=== PATIENT | male | born 1980 | race Two or more races ===

== ENCOUNTER 2017-10-29 12:23 | Emergency (ER) | payer SELFPAY | END 2017-10-29 15:29 | disposition home or self-care (01) | LOC: ER 12:23 | DX: S22.060A Wedge compression fracture of T7-T8 vertebra, initial encounter for closed fracture (principal); M47.814 Spondylosis without myelopathy or radiculopathy, thoracic region; W17.89XA Other fall from one level to another, initial encounter; Y93.89 Activity, other specified; Y92.009 Unspecified place in unspecified non-institutional (private) residence as the place of occurrence of the external cause; Y99.8 Other external cause status | CPT/HCPCS: 71046; 72128; 99284-25 ==

== ENCOUNTER 2017-11-12 16:16 | Emergency (ER) | payer SELFPAY ==
[2017-11-12] MEDS: diphenhydrAMINE 50 MG/ML VIAL IVP (17:15)
[2017-11-12] MEDS: METOCLOPRAMIDE HCL 10 MG/2 ML VIAL. IV (17:15)
[2017-11-12] MEDS: IV NORMAL SALINE 1000ML BAG 1,000 ML IV (17:15)
== END 2017-11-12 18:18 | disposition home or self-care (01) ==
LOC: ER 16:16
DX: R51 Headache (principal); R42 Dizziness and giddiness; H53.8 Other visual disturbances; R11.0 Nausea; Z90.49 Acquired absence of other specified parts of digestive tract
CPT/HCPCS: 70450; 99284-25